=== PATIENT | male | born 1995 | race Caucasian/White ===

== ENCOUNTER 2018-04-23 08:37 | Emergency (ER) | payer OTHER ==
[~2018-04-23] VITALS: Ht 190.5 cm; Wt 88.9 kg
[2018-04-23 08:50] VITALS: Ht 190.5 cm; Wt 88.9 kg
[2018-04-23 09:38] VITALS: BP 122/72
== END 2018-04-23 09:38 | disposition home or self-care (01) ==
LOC: ED 08:37
DX: J02.9 Acute pharyngitis, unspecified (principal)

== ENCOUNTER 2018-09-17 23:09 | Emergency (ER) | payer OTHER ==
[~2018-09-17] VITALS: Ht 190.5 cm; Wt 91.2 kg
[2018-09-17 23:15] VITALS: Ht 190.5 cm; Wt 91.2 kg
[2018-09-18 00:33] VITALS: BP 123/83
[2018-09-20 07:21] LABS: RAPID PLASMA REAGIN Non Reactive (Non Reactive)
== END 2018-09-18 00:33 | disposition home or self-care (01) ==
LOC: ED 23:09
PROVIDERS: Emergency Medicine
DX: N34.2 Other urethritis (principal)
CPT/HCPCS: 87491; 87591; J0696